=== PATIENT | female | born 1995 | race Caucasian/White ===

== ENCOUNTER 2021-08-16 10:35 | Emergency (ER) | payer BC ==
[~2021-08-16] VITALS: Ht 157.5 cm; Wt 65.8 kg
--- NOTE | 2021-08-16 10:35 | NUR ---
PT BIB SELF C/O ABDOMINAL PAIN X 2 DAYS. PT IS AAOX4, NOT IN RESPIRATORY DISTRESS, V/S STABLE, KEPT RESTED AND COMFORTABLE. WILL CONTINUE TO MONITOR.
[2021-08-16] MEDS ORDERED: LIDOCAINE VISCOUS 2% UD 15 ML UDC ONE (11:38)
[2021-08-16] MEDS ORDERED: ONDANSETRON HCL/PF 4 MG/2 ML VIAL ONE (11:38)
[2021-08-16] MEDS ORDERED: MAG HYDROX/AL HYDROX/SIMETH 30 ML UDC ONE (11:38)
[2021-08-16] MEDS ORDERED: FAMOTIDINE/PF INJ 20 MG/2 ML VIAL IV ONE ×2 (11:38→12:00)
--- NOTE | 2021-08-16 11:40 | NUR ---
IV LINE ESTABLISHED BLOOD DRAWN AND SENT TO LAB.
--- NOTE | 2021-08-16 11:45 | NUR ---
CLEARANCE REP AT BEDSIDE FOR ULTRASOUND.
--- NOTE | 2021-08-16 11:46 | NUR ---
URINE COLLECTED AND SENT TO THE LAB
[2021-08-16 11:55] LABS: BASOPHILS % (AUTO) 0.4 % (0.0-2.0); EOSINOPHILS % (AUTO) 0.9 % (0.0-6.0); HEMATOCRIT 41 % (33-45); HEMOGLOBIN 13.5 g/dL (11.5-14.8); LYMPHOCYTES # (AUTO) 1.3 K/uL (0.8-4.8); LYMPHOCYTES % (AUTO) 14.7 % (20.0-44.0); MEAN CORPUSCULAR HGB CONC 33 g/dl (31.0-36.0); MEAN CORPUSCULAR VOLUME 93 fL (82-100); MONOCYTES # (AUTO) 0.5 K/uL (0.1-1.30); MONOCYTES % (AUTO) 5.8 % (2.0-12.0); NEUTROPHILS % (AUTO) 78.2 % (43.0-81.0); PLATELET COUNT (AUTO) 277 K/uL (150-450); RED BLOOD CELL COUNT(AUTO) 4.42 MIL/uL (4.0-5.2); WHITE BLOOD COUNT (AUTO) 8.9 K/uL (4.3-11.0)
[2021-08-16] MEDS ORDERED: MAG HYDROX/AL HYDROX/SIMETH 30 ML UDC PO ONE (12:00)
[2021-08-16] MEDS ORDERED: ONDANSETRON HCL/PF 4 MG/2 ML VIAL IVP ONE (12:00)
[2021-08-16] MEDS ORDERED: LIDOCAINE VISCOUS 2% UD 15 ML UDC MM ONE (12:00)
[2021-08-16] MEDS ORDERED: IV NS 0.9% 1,000 ML BAG IV ONE (12:00)
[2021-08-16 12:22] LABS: BILIRUBIN,URINE NEGATIVE (NEGATIVE); COLOR,URINE YELLOW (YELLOW); LEUKOCYTE ESTERASE ,URINE NEGATIVE (NEGATIVE); NITRITE, URINE NEGATIVE (NEGATIVE); PROTEIN,URINE NEGATIVE (NEGATIVE); UGLUCOSE NEGATIVE (NEGATIVE); UROBILINOGEN,URINE 0.2 EU/dL (0.2)
--- NOTE | 2021-08-16 13:35 | NUR ---
FOLLOWED UP CHEMISTRY RESULTS WITH MAIN LAB.
--- NOTE | 2021-08-16 13:37 | NUR ---
PER LAB, CHEMISTRY RESULTS WITHIN 15-30 MIN
--- NOTE | 2021-08-16 14:07 | NUR ---
CALLED LAB FOR CEHMISTRY RESULT PER STAFF STILL DOING QC. BEEN WAITING FOR 2.5 HOURS FOR THE RESULT.
[2021-08-16] MEDS ORDERED: ONDA4TAB5 PO (14:15)
[2021-08-16] MEDS ORDERED: FAMO-131 PO (14:15)
[2021-08-16 14:37] LABS: CALCIUM, SERUM 7.7 mg/dL (8.5-10.1); CREATININE 0.5 mg/dL (0.6-1.3); POTASSIUM 3.5 mmol/L (3.5-5.1)
[2021-08-16 14:51] LABS: BILIRUBIN,DIRECT 0.1 mg/dL (0.0-0.2); BILIRUBIN,TOTAL 0.3 mg/dL (0.2-1.0); TOTAL PROTEIN, SERUM 6.2 g/dL (6.4-8.2)
[2021-08-16 15:18] VITALS: BP 117/74
--- NOTE | 2021-08-16 15:18 | NUR ---
IV removed. Catheter intact and site benign. Pressure and 4x4 applied to site. No bleeding noted. Patient discharged to home in stable condition. Written and verbal after care instructions given. Patient verbalizes understanding of instruction.
== END 2021-08-16 15:19 | disposition home or self-care (01) ==
LOC: ER 10:40
DX: R11.2 Nausea with vomiting, unspecified (principal); R19.7 Diarrhea, unspecified; R10.13 Epigastric pain; Z79.899 Other long term (current) drug therapy
CPT/HCPCS: 36415; 76705; 80048; 80076; 81003; 83690; 84703; 85025; 85730; 96361; 96374; 96375; 99284; J2405; J3490; J7030

== ENCOUNTER 2022-10-31 15:50 | Emergency (ER) | payer BC, OTHER ==
[~2022-10-31] VITALS: Ht 157.5 cm; Wt 68.0 kg
[~2022-10-31 15:50] MED LIST: FAMO-131 PO; ONDA4TAB5 PO
[2022-10-31 16:03] VITALS: BP 121/79
[2022-10-31] MEDS ORDERED: KETOROLAC TROMETHAMINE INJ 60 MG/2 ML VIAL IM ONE (16:30)
[2022-10-31] MEDS ORDERED: KETOROLAC TROMETHAMINE INJ 30 MG/ML VIAL ONE (16:59)
[2022-10-31] MEDS ORDERED: CYCL10TA9 PO (17:36)
[2022-10-31] MEDS ORDERED: IBUP-1955 PO (17:36)
--- NOTE | 2022-10-31 17:47 | NUR ---
Patient discharged to home in stable condition, ambulating. Written and verbal after care instructions given. Patient verbalizes understanding of instruction.
== END 2022-10-31 17:48 | disposition home or self-care (01) ==
LOC: ER 16:01
DX: S46.812A Strain of other muscles, fascia and tendons at shoulder and upper arm level, left arm, initial encounter (principal); Z79.899 Other long term (current) drug therapy; Y04.8XXA Assault by other bodily force, initial encounter; Y93.89 Activity, other specified; Y92.218 Other school as the place of occurrence of the external cause; Y99.8 Other external cause status
CPT/HCPCS: 99283; 96372; 73030; J1885